=== PATIENT | female | born 1950 | race African-American/Black ===

== ENCOUNTER 2017-02-27 23:20 | Emergency (ER) | payer OTHER ==
[~2017-02-27] VITALS: Ht 177.8 cm; Wt 148.0 kg
[2017-02-28 00:36] LABS: CHLORIDE 103 mEq/L (98-107); INDEX HEMOLYSI 1 (1-3); INDEX ICTERIC 1 (1-4); INDEX LIPEMIC 1 (1-3)
[2017-02-28 00:43] LABS: BASOPHILS % 0.3 % (0.0-2.0); EOSINOPHILS % 5.5 % (0.0-5.0); HEMATOCRIT. 36.2 % (36.0-48.0); HEMOGLOBIN. 11.6 g/dL (12.0-16.0); LYMPHOCYTES % 18.5 % (20.0-50.0); MEAN CORPUSCULAR HEMOGLOBIN 27.9 pg (28.0-32.0); MEAN CORPUSCULAR HGB CONC 31.9 g/dL (31.0-37.0); MEAN CORPUSCULAR VOLUME 87.4 fL (81.0-99.0); MEAN PLATELET VOLUME 8.2 fl (7.4-10.4); MONOCYTES % 7.2 % (2.0-8.0); NEUTROPHILS % 68.5 % (40.0-76.0); PLATELET 226 x1000/uL (130-400); RED BLOOD CELL COUNT 4.14 mill/uL (4.2-5.4); RED CELL DISTRIBUTION WIDTH 15.6 % (11.6-14.6); WHITE BLOOD COUNT 5.4 x1000/uL (4.5-11.0)
[2017-02-28 00:45] LABS: ALANINE AMINOTRANSFERASE 23 IU/L (13-61); ALBUMIN 3.2 g/dL (3.4-5.0); ANION GAP 14; CALCIUM 9.5 mg/dL (8.5-10.1); CARBON DIOXIDE 27 mEq/L (21-32); LIPASE 562 IU/L (73-393); UREA NITROGEN BLOOD 13 mg/dL (7-21); eGFR > 60 mL/min (>60)
[2017-02-28 00:48] LABS: INR 1.1; PROTHROMBIN TIME 11.8 sec
[2017-02-28 02:27] VITALS: BP 175/85
[2017-02-28 02:43] LABS: CLARITY URINE TURBID (CLEAR); COLOR URINE DARK YELLOW (YELLOW); GLUCOSE URINE NEGATIVE (NEGATIVE); KETONES URINE TRACE (NEGATIVE); LEUKOCYTE ESTERASE URINE 2+ (NEGATIVE); NITRITE URINE NEGATIVE (NEGATIVE); OCCULT BLOOD URINE NEGATIVE (NEGATIVE); PROTEIN URINE TRACE (NEGATIVE); SPECIFIC GRAVITY URINE 1.025 (1.005-1.030)
[2017-02-28 03:00] LABS: RBC URINE 0-2 /hpf (0-2)
[2017-02-28 03:01] LABS: BACTERIA URINE 2+; SQUAMOUS EPITHELIAL CELL URINE 3+ /lpf (RARE/1+)
[2017-02-28] MEDS ORDERED: CEFTRIAXONE 1 G PREMIX 50 ML IV ONE (03:15)
== END 2017-02-28 04:26 | disposition home or self-care (01) ==
LOC: ER 23:23
DX: R10.84 Generalized abdominal pain (principal); N39.0 Urinary tract infection, site not specified; E11.9 Type 2 diabetes mellitus without complications; E78.00 Pure hypercholesterolemia, unspecified; D25.9 Leiomyoma of uterus, unspecified; I10 Essential (primary) hypertension; K76.0 Fatty (change of) liver, not elsewhere classified; L40.9 Psoriasis, unspecified; N20.0 Calculus of kidney; N28.1 Cyst of kidney, acquired; R06.02 Shortness of breath; R07.9 Chest pain, unspecified; R20.0 Anesthesia of skin; Z87.891 Personal history of nicotine dependence; Z88.0 Allergy status to penicillin
CPT/HCPCS: 36415; 71010; 74176; 80053; 81001; 83690; 85025; 85610; 96365; 99285; J0696; Z7610

== ENCOUNTER 2019-02-20 14:23 | Inpatient (IN) | payer BC, OTHER ==
[~2019-02-20] VITALS: Ht 177.8 cm; Wt 116.7 kg
[~2019-02-20 14:23] MED LIST: ACET-2853 PO; APIX5TAB PO; FOLI-43 PO; FURO-151 PO; GABA-290 PO; HYDR-4009 PO; HYDR2TAB4 PO; LEVO50TA PO; LOSA50TA3 PO; METF-415 PO; PANT40TA4 PO; POTA20TA82 PO; RIVA20TA PO
[2019-02-20] MEDS ORDERED: ONDANSETRON HCL 4MG/2ML INJ IV STA (14:43)
[2019-02-20 15:30] LABS: CHLORIDE 106 mEq/L (98-107)
[2019-02-20 15:31] LABS: BASOPHILS % 0.5 % (0.0-2.0); EOSINOPHILS % 3.4 % (0.0-5.0); HEMOGLOBIN. 11.9 g/dL (12.0-16.0); LYMPHOCYTES % 31.4 % (20.0-50.0); MEAN CORPUSCULAR HEMOGLOBIN 30.9 pg (28.0-32.0); MEAN CORPUSCULAR VOLUME 93.3 fL (81.0-99.0); MEAN PLATELET VOLUME 7.6 fl (7.4-10.4); NEUTROPHILS % 55.7 % (40.0-76.0); PLATELET 218 x1000/uL (130-400); RED BLOOD CELL COUNT 3.86 mill/uL (4.2-5.4); RED CELL DISTRIBUTION WIDTH 16.2 % (11.6-14.6)
[2019-02-20 15:35] LABS: ETHANOL BLOOD 104 mg/dL
[2019-02-20] MEDS ORDERED: KETOROLAC 30MG/ML VIAL IV NR (19:50)
[2019-02-20] MEDS ORDERED: VISCOUS LIDOCAINE 2% 15 ML UDC PO NR (20:00)
[2019-02-20] MEDS ORDERED: MAGNESIUM/ALUMINUM HYDROXIDE/SIMETHICONE 30ML UDC PO NR (20:00)
[2019-02-20 21:00] VITALS: BP 146/73
[2019-02-20] MEDS ORDERED: IOHEXOL-350 100 ML BOTTLE ONE (21:05)
[2019-02-20 21:30] VITALS: BP 146/79
[2019-02-20] MEDS ORDERED: CHLORDIAZEPOXIDE 25MG CAPSULE PO PRN (22:30)
[2019-02-20] MEDS ORDERED: GUAIFENESIN 200MG/10ML SUGAR FREE UDC PO PRN (22:30)
[2019-02-20] MEDS ORDERED: CLONIDINE 0.1MG TABLET PO PRN (22:30)
[2019-02-20] MEDS ORDERED: MAGNESIUM/ALUMINUM HYDROXIDE/SIMETHICONE 30ML UDC PO PRN (22:30)
[2019-02-20] MEDS ORDERED: ACETAMINOPHEN 325MG TABLET PO PRN (22:30)
[2019-02-20] MEDS ORDERED: DEXTROSE 50% WATER 50ML SYRINGE IV PRN (22:30)
[2019-02-20] MEDS ORDERED: CYANOCOBALAMIN 1000MCG/ML VIAL IM NR (22:30)
[2019-02-20] MEDS ORDERED: APIXABAN 5 MG TABLET PO SCH (22:30)
[2019-02-20] MEDS ORDERED: LORAZEPAM 2MG/ML CPJ IV PRN (22:30)
[2019-02-20] MEDS ORDERED: ONDANSETRON HCL 4MG/2ML INJ IV PRN (22:30)
[2019-02-20] MEDS ORDERED: MAGNESIUM 2 G PREMIX 50 ML IV ONE (23:00)
[2019-02-20] MEDS ORDERED: KETOROLAC 30MG/ML VIAL IV PRN (23:00)
[2019-02-21] MEDS ORDERED: POTASSIUM CHLORIDE 20MEQ/PACKET GT NR
[2019-02-21] MEDS ORDERED: MVI, ADULT NO.1 10 ML, FOLIC ACID 1 MG, THIAMINE HCL 100 MG in SODIUM CHLORIDE 0.9% 1,0... IV NR ×4
[2019-02-21] MEDS: HYDROMORPHONE HCL 2MG TABLET PO PRN ×3 (00:10→17:37)
[2019-02-21 00:21] LABS: VITAMIN B12 SERUM 573 pg/mL (211-911)
[2019-02-21 00:45] VITALS: BP 137/81
[2019-02-21 04:00] VITALS: BP 140/69
[2019-02-21] MEDS: SODIUM CHLORIDE 0.9% INJ 3ML FLUSH IVF SCH ×2 (06:41→16:32)
[2019-02-21] MEDS: BLOOD SUGAR DIAGNOSTIC STRIP TEST SCH ×4 (06:41→21:00)
[2019-02-21 07:29] LABS: CHLORIDE 107 mEq/L (98-107)
[2019-02-21 08:00] VITALS: BP 114/50
[2019-02-21] MEDS: INSULIN LISPRO 100 UNITS/ML SUBCUT SCH ×4 (08:10→21:00)
[2019-02-21] MEDS: LEVOTHYROXINE SODIUM 50MCG TABLET PO SCH (09:09)
[2019-02-21] MEDS: APIXABAN 5 MG TABLET PO SCH ×2 (09:09→17:33)
[2019-02-21] MEDS: DIPHENHYDRAMINE 50MG/ML VIAL IV PRN (09:13)
[2019-02-21 16:00] VITALS: BP 120/74
[2019-02-21] MEDS ORDERED: LEVO75TA PO (18:18)
[2019-02-21 20:00] VITALS: BP 114/62
[2019-02-21] MEDS: ATORVASTATIN CALCIUM 40MG TABLET PO SCH (20:59)
[2019-02-22] MEDS: HYDROMORPHONE HCL 2MG TABLET PO PRN ×4 (00:08→21:38)
[2019-02-22] MEDS: SODIUM CHLORIDE 0.9% INJ 3ML FLUSH IVF SCH ×4 (00:12→21:37)
[2019-02-22] MEDS: DIPHENHYDRAMINE 50MG/ML VIAL IV PRN ×4 (00:12→21:37)
[2019-02-22 04:00] VITALS: BP 120/61
[2019-02-22] MEDS: LEVOTHYROXINE SODIUM 50MCG TABLET PO SCH (06:15)
[2019-02-22] MEDS: BLOOD SUGAR DIAGNOSTIC STRIP TEST SCH ×4 (07:40→21:36)
[2019-02-22 08:00] VITALS: BP 133/73
[2019-02-22] MEDS: INSULIN LISPRO 100 UNITS/ML SUBCUT SCH ×4 (08:10→21:00)
[2019-02-22] MEDS: APIXABAN 5 MG TABLET PO SCH ×2 (08:56→21:36)
[2019-02-22 09:00] VITALS: BP 133/73
[2019-02-22 12:00] VITALS: BP 134/71
[2019-02-22 16:00] VITALS: BP 137/64
[2019-02-22 20:00] VITALS: BP 125/59
[2019-02-22] MEDS: ATORVASTATIN CALCIUM 40MG TABLET PO SCH (21:36)
[2019-02-23] VITALS: BP 98/59
[2019-02-23 04:00] VITALS: BP 129/72
[2019-02-23] MEDS: SODIUM CHLORIDE 0.9% INJ 3ML FLUSH IVF SCH ×3 (06:19→21:37)
[2019-02-23] MEDS: HYDROMORPHONE HCL 2MG TABLET PO PRN ×3 (06:25→21:36)
[2019-02-23] MEDS: INSULIN LISPRO 100 UNITS/ML SUBCUT SCH ×4 (07:26→21:00)
[2019-02-23] MEDS: BLOOD SUGAR DIAGNOSTIC STRIP TEST SCH ×4 (07:26→21:35)
[2019-02-23 08:00] VITALS: BP 123/75
[2019-02-23] MEDS: LEVOTHYROXINE SODIUM 50MCG TABLET PO SCH (09:19)
[2019-02-23] MEDS: APIXABAN 5 MG TABLET PO SCH ×2 (09:19→21:37)
[2019-02-23 12:00] VITALS: BP 122/70
[2019-02-23] MEDS: DIPHENHYDRAMINE 50MG/ML VIAL IV PRN ×2 (12:01→21:36)
[2019-02-23 16:00] VITALS: BP 133/65
[2019-02-23 20:00] VITALS: BP 125/65
[2019-02-23] MEDS: ATORVASTATIN CALCIUM 40MG TABLET PO SCH (21:36)
[2019-02-24] VITALS: BP 121/55
[2019-02-24 04:00] VITALS: BP 126/68
[2019-02-24] MEDS: LEVOTHYROXINE SODIUM 50MCG TABLET PO SCH (06:54)
[2019-02-24] MEDS: SODIUM CHLORIDE 0.9% INJ 3ML FLUSH IVF SCH ×3 (06:54→22:05)
[2019-02-24] MEDS: DIPHENHYDRAMINE 50MG/ML VIAL IV PRN ×3 (06:54→20:43)
[2019-02-24] MEDS: HYDROMORPHONE HCL 2MG TABLET PO PRN ×3 (06:55→20:43)
[2019-02-24] MEDS: BLOOD SUGAR DIAGNOSTIC STRIP TEST SCH ×4 (06:59→20:35)
[2019-02-24] MEDS: INSULIN LISPRO 100 UNITS/ML SUBCUT SCH ×4 (06:59→20:35)
[2019-02-24 08:00] VITALS: BP 131/76
[2019-02-24] MEDS: APIXABAN 5 MG TABLET PO SCH ×2 (08:43→20:42)
[2019-02-24 12:04] VITALS: BP 118/64
[2019-02-24 16:26] VITALS: BP 114/53
[2019-02-24 20:00] VITALS: BP 119/68
[2019-02-24] MEDS: ATORVASTATIN CALCIUM 40MG TABLET PO SCH (20:33)
[2019-02-25] VITALS: BP 132/62
[2019-02-25 04:00] VITALS: BP 139/73
[2019-02-25] MEDS: SODIUM CHLORIDE 0.9% INJ 3ML FLUSH IVF SCH ×3 (05:53→21:18)
[2019-02-25] MEDS: BLOOD SUGAR DIAGNOSTIC STRIP TEST SCH ×4 (05:54→21:18)
[2019-02-25] MEDS: LEVOTHYROXINE SODIUM 50MCG TABLET PO SCH (05:57)
[2019-02-25] MEDS: DIPHENHYDRAMINE 50MG/ML VIAL IV PRN ×2 (06:10→21:17)
[2019-02-25] MEDS: INSULIN LISPRO 100 UNITS/ML SUBCUT SCH ×4 (06:18→21:00)
[2019-02-25 08:00] VITALS: BP 111/63
[2019-02-25] MEDS: APIXABAN 5 MG TABLET PO SCH ×2 (10:14→21:18)
[2019-02-25] MEDS: HYDROMORPHONE HCL 2MG TABLET PO PRN ×2 (11:08→21:18)
[2019-02-25 12:00] VITALS: BP 117/73
[2019-02-25 16:00] VITALS: BP 107/83
[2019-02-25 20:00] VITALS: BP 114/54
[2019-02-25] MEDS: ATORVASTATIN CALCIUM 40MG TABLET PO SCH (21:17)
[2019-02-25] MEDS: DIPHENHYDRAMINE 25MG CAPSULE PO PRN (23:10)
[2019-02-26] VITALS: BP 107/59
[2019-02-26 04:00] VITALS: BP 162/87
[2019-02-26] MEDS: SODIUM CHLORIDE 0.9% INJ 3ML FLUSH IVF SCH ×2 (06:21→14:00)
[2019-02-26] MEDS: BLOOD SUGAR DIAGNOSTIC STRIP TEST SCH ×2 (06:21→11:34)
[2019-02-26] MEDS: LEVOTHYROXINE SODIUM 50MCG TABLET PO SCH (06:21)
[2019-02-26] MEDS: INSULIN LISPRO 100 UNITS/ML SUBCUT SCH ×2 (06:21→11:46)
[2019-02-26] MEDS: DIPHENHYDRAMINE 25MG CAPSULE PO PRN (06:35)
[2019-02-26 08:00] VITALS: BP 119/62
[2019-02-26] MEDS: APIXABAN 5 MG TABLET PO SCH (08:09)
[2019-02-26 13:42] VITALS: BP 116/68
== END 2019-02-26 15:15 | DRG 313 ==
LOC: ER 14:23 → EDBEDREQ 19:48 → EDBEDREQTM 19:54 → EDBEDREQ 19:54 → 7WST 20:09 → EDBEDREQTM 20:13 → ENRESERV 20:29 → 8WST 02-23 08:22
PROVIDERS: ADMIT Internal Medicine; ATTEND Internal Medicine
DX: R07.89 Other chest pain (principal); E46 Unspecified protein-calorie malnutrition; E66.01 Morbid (severe) obesity due to excess calories; E87.6 Hypokalemia; E11.40 Type 2 diabetes mellitus with diabetic neuropathy, unspecified; F10.229 Alcohol dependence with intoxication, unspecified; E53.8 Deficiency of other specified B group vitamins; I10 Essential (primary) hypertension; E03.9 Hypothyroidism, unspecified; K76.0 Fatty (change of) liver, not elsewhere classified; Z87.891 Personal history of nicotine dependence; Z86.711 Personal history of pulmonary embolism; Z93.3 Colostomy status; Z68.36 Body mass index [BMI] 36.0-36.9, adult; Z88.0 Allergy status to penicillin; Z79.899 Other long term (current) drug therapy
CPT/HCPCS: 36415; 71045; 71275; 80051; 80320; 82607; 82962; 83036; 83735; 83880; 84443; 84484; 93005; 93306; 93970; 97110; 97162; 97166; 97530; 99285; A6261; J1200; J1885; J2405; J3411; J3420; J3490; J7030; J7050; Q0163; Q9967; G0480

== ENCOUNTER 2019-08-26 16:36 | Inpatient (IN) | payer BC ==
[~2019-08-26] VITALS: Ht 175.3 cm; Wt 110.2 kg
[~2019-08-26 16:36] MED LIST changes: -ACET-2853 PO; -FOLI-43 PO; -FURO-151 PO; -GABA-290 PO; -HYDR-4009 PO; -LEVO50TA PO; +LEVO75TA PO; -LOSA50TA3 PO; -METF-415 PO; -PANT40TA4 PO; -POTA20TA82 PO; -RIVA20TA PO
[2019-08-26] MEDS ORDERED: SODIUM CHLORIDE 0.9% 1,000 ML IV ONE (17:15)
[2019-08-26 17:59] LABS: BASOPHILS % 0.6 % (0.0-2.0); EOSINOPHILS % 1.2 % (0.0-5.0); HEMATOCRIT. 44.6 % (36.0-48.0); HEMOGLOBIN. 14.5 g/dL (12.0-16.0); LYMPHOCYTES % 17.3 % (20.0-50.0); MEAN CORPUSCULAR HEMOGLOBIN 31.2 pg (28.0-32.0); MEAN CORPUSCULAR VOLUME 96.1 fL (81.0-99.0); MEAN PLATELET VOLUME 9.4 fl (7.4-10.4); MONOCYTES % 5.6 % (2.0-8.0); NEUTROPHILS % 75.3 % (40.0-76.0); PLATELET 236 x1000/uL (130-400); RED BLOOD CELL COUNT 4.64 mill/uL (4.2-5.4); RED CELL DISTRIBUTION WIDTH 17.4 % (11.6-14.6)
[2019-08-26 18:04] LABS: PROTHROMBIN TIME 10.5 sec (9.6-11.0)
[2019-08-26 18:06] LABS: CHLORIDE 109 mEq/L (98-107)
[2019-08-26] MEDS ORDERED: SODIUM CHLORIDE 0.9% 1000ML BAG (SEPSIS BOLUS) IV ONE (18:30)
[2019-08-26] MEDS ORDERED: VANCOMYCIN 1 G PREMIX 200 ML IV ONE (18:30)
[2019-08-26] MEDS ORDERED: PIPERACILLIN/TAZ 3.375G PREMIX 50 ML IV ONE (18:30)
[2019-08-26 20:38] LABS: CLARITY URINE TURBID (CLEAR); COLOR URINE DARK YELLOW (YELLOW); KETONES URINE TRACE (NEGATIVE); LEUKOCYTE ESTERASE URINE 3+ (NEGATIVE); NITRITE URINE NEGATIVE (NEGATIVE); OCCULT BLOOD URINE 3+ (NEGATIVE); PH URINE >=9.0 (4.5-8.0); PROTEIN URINE 4+ (NEGATIVE); SPECIFIC GRAVITY URINE 1.023 (1.005-1.030)
[2019-08-26] MEDS ORDERED: IPRATROPIUM/ALBUTEROL 0.5-3(2.5)MG/3ML NEB NEB PRN (22:45)
[2019-08-26] MEDS ORDERED: CLONIDINE 0.1MG TABLET PO PRN (22:45)
[2019-08-26] MEDS ORDERED: DEXTROSE 50% WATER 50ML SYRINGE IV PRN (22:45)
[2019-08-26] MEDS ORDERED: MAGNESIUM/ALUMINUM HYDROXIDE/SIMETHICONE 30ML UDC PO PRN (22:45)
[2019-08-26] MEDS ORDERED: DIPHENHYDRAMINE 50MG/ML VIAL IV PRN (22:45)
[2019-08-26] MEDS ORDERED: ONDANSETRON HCL 4MG/2ML INJ IV PRN (22:45)
[2019-08-27] VITALS: BP 146/85
[2019-08-27 04:25] VITALS: BP 131/79
[2019-08-27] MEDS ORDERED: MVI, ADULT NO.1 10 ML, FOLIC ACID 1 MG, THIAMINE HCL 100 MG in SODIUM CHLORIDE 0.9% 1,0... IV SCH ×4 (05:00)
[2019-08-27] MEDS ORDERED: LEVOFLOXACIN 500MG PREMIX 100 ML IV SCH (06:00)
[2019-08-27] MEDS: SODIUM CHLORIDE 0.9% INJ 3ML FLUSH IVF SCH ×3 (06:25→21:34)
[2019-08-27] MEDS: BLOOD SUGAR DIAGNOSTIC STRIP TEST SCH ×4 (07:40→21:34)
[2019-08-27 08:00] VITALS: BP 130/78
[2019-08-27] MEDS: INSULIN LISPRO 100 UNITS/ML SUBCUT SCH ×4 (08:58→21:00)
[2019-08-27] MEDS: ENOXAPARIN 30MG/0.3ML SYR SUBCUT SCH ×2 (08:59→21:36)
[2019-08-27 09:24] LABS: BASOPHILS % 0.2 % (0.0-2.0); EOSINOPHILS % 1.6 % (0.0-5.0); HEMOGLOBIN. 12.2 g/dL (12.0-16.0); LYMPHOCYTES % 13.9 % (20.0-50.0); MEAN CORPUSCULAR HEMOGLOBIN 30.6 pg (28.0-32.0); MEAN CORPUSCULAR VOLUME 94.8 fL (81.0-99.0); MEAN PLATELET VOLUME 8.9 fl (7.4-10.4); MONOCYTES % 5.3 % (2.0-8.0); PLATELET 170 x1000/uL (130-400); RED BLOOD CELL COUNT 4.01 mill/uL (4.2-5.4); RED CELL DISTRIBUTION WIDTH 17.3 % (11.6-14.6)
[2019-08-27 09:33] LABS: CHLORIDE 115 mEq/L (98-107)
[2019-08-27] MEDS ORDERED: SODIUM PHOS,M-BASIC-D-BASIC 15 MM in DEXT 5% WATER 245 ML IV ONE (10:30)
[2019-08-27] MEDS: LEVOTHYROXINE SODIUM 50MCG TABLET PO SCH (11:34)
[2019-08-27] MEDS: POTASSIUM CHLORIDE 20MEQ TABLET SR PO SCH ×3 (11:34→16:11)
[2019-08-27 12:00] VITALS: BP 155/90
[2019-08-27] MEDS ORDERED: MAGNESIUM 2 G PREMIX 50 ML IV SCH (12:00)
[2019-08-27] MEDS ORDERED: POTASSIUM PHOS,M-BASIC-D-BASIC 15 MMOL in DEXTROSE 5% WATER 250 ML IV SCH (12:00)
[2019-08-27 13:37] LABS: VITAMIN B12 SERUM 1600 pg/mL (211-911)
[2019-08-27 16:00] VITALS: BP 129/81
[2019-08-27] MEDS: PANTOT AC/MIN OIL/PET HY-PHL OINT (AQUAPHOR) TOP SCH (16:50)
[2019-08-27] MEDS: NYSTATIN POWDER 15GM TOP SCH ×2 (16:51→21:34)
[2019-08-28] VITALS: BP 154/87
[2019-08-28 04:00] VITALS: BP 152/91
[2019-08-28] MEDS: SODIUM CHLORIDE 0.9% INJ 3ML FLUSH IVF SCH ×3 (05:06→20:53)
[2019-08-28] MEDS: NYSTATIN POWDER 15GM TOP SCH ×3 (05:19→20:54)
[2019-08-28] MEDS ORDERED: LEVOFLOXACIN 500MG PREMIX 100 ML IV SCH (06:00)
[2019-08-28 07:31] LABS: BASOPHILS % 0.4 % (0.0-2.0); EOSINOPHILS % 4.4 % (0.0-5.0); HEMATOCRIT. 36.1 % (36.0-48.0); HEMOGLOBIN. 11.7 g/dL (12.0-16.0); MEAN CORPUSCULAR HEMOGLOBIN 31.1 pg (28.0-32.0); MONOCYTES % 7.7 % (2.0-8.0); NEUTROPHILS % 67.5 % (40.0-76.0); PLATELET 169 x1000/uL (130-400); RED BLOOD CELL COUNT 3.76 mill/uL (4.2-5.4); RED CELL DISTRIBUTION WIDTH 17.5 % (11.6-14.6)
[2019-08-28 07:58] LABS: CHLORIDE 120 mEq/L (98-107)
[2019-08-28 08:00] VITALS: BP 126/75
[2019-08-28 08:06] LABS: PHOSPHORUS 3.4 mg/dL (2.5-4.9)
[2019-08-28] MEDS: INSULIN LISPRO 100 UNITS/ML SUBCUT SCH ×4 (08:10→21:00)
[2019-08-28] MEDS: BLOOD SUGAR DIAGNOSTIC STRIP TEST SCH ×4 (08:14→21:00)
[2019-08-28] MEDS: LEVOTHYROXINE SODIUM 50MCG TABLET PO SCH (08:21)
[2019-08-28] MEDS: PANTOT AC/MIN OIL/PET HY-PHL OINT (AQUAPHOR) TOP SCH (09:00)
[2019-08-28] MEDS: ENOXAPARIN 30MG/0.3ML SYR SUBCUT SCH ×2 (10:01→20:53)
[2019-08-28] MEDS: ACETAMINOPHEN 325MG TABLET PO PRN ×2 (11:35→20:55)
[2019-08-28 12:00] VITALS: BP 118/79
[2019-08-28] MEDS ORDERED: CEFTRIAXONE 1 G PREMIX 50 ML IV SCH (14:45)
[2019-08-28 16:00] VITALS: BP 119/77
[2019-08-28 20:00] VITALS: BP 149/84
[2019-08-28] MEDS: SULFAMETHOXAZOLE/TRIMETHOPRIM 800/160MG TABLET PO SCH (20:53)
[2019-08-29 00:44] VITALS: BP 115/76
[2019-08-29 04:00] VITALS: BP 133/75
[2019-08-29] MEDS: NYSTATIN POWDER 15GM TOP SCH ×3 (06:34→21:41)
[2019-08-29] MEDS: SODIUM CHLORIDE 0.9% INJ 3ML FLUSH IVF SCH ×3 (06:34→21:40)
[2019-08-29 08:00] VITALS: BP 140/68
[2019-08-29] MEDS: INSULIN LISPRO 100 UNITS/ML SUBCUT SCH ×4 (08:10→20:24)
[2019-08-29] MEDS: BLOOD SUGAR DIAGNOSTIC STRIP TEST SCH ×4 (08:25→20:17)
[2019-08-29] MEDS: LEVOTHYROXINE SODIUM 50MCG TABLET PO SCH (08:30)
[2019-08-29] MEDS: SULFAMETHOXAZOLE/TRIMETHOPRIM 800/160MG TABLET PO SCH ×2 (08:30→20:16)
[2019-08-29] MEDS: ENOXAPARIN 30MG/0.3ML SYR SUBCUT SCH ×2 (08:30→20:17)
[2019-08-29] MEDS: NYSTATIN/TRIAMCIN CREAM 15GM TOP SCH ×4 (11:29→21:41)
[2019-08-29] MEDS: PANTOT AC/MIN OIL/PET HY-PHL OINT (AQUAPHOR) TOP SCH (11:29)
[2019-08-29 12:00] VITALS: BP 138/74
[2019-08-29 16:00] VITALS: BP 105/59
[2019-08-29] MEDS: DIPHENHYDRAMINE 50MG CAPSULE PO PRN (16:56)
[2019-08-29 20:31] VITALS: BP 126/72
[2019-08-30] VITALS: BP 118/62
[2019-08-30 04:00] VITALS: BP 122/70
[2019-08-30] MEDS: SODIUM CHLORIDE 0.9% INJ 3ML FLUSH IVF SCH ×3 (05:15→21:27)
[2019-08-30] MEDS: NYSTATIN/TRIAMCIN CREAM 15GM TOP SCH ×3 (05:40→21:27)
[2019-08-30] MEDS: NYSTATIN POWDER 15GM TOP SCH ×3 (05:40→21:27)
[2019-08-30 08:00] VITALS: BP 132/65
[2019-08-30] MEDS: INSULIN LISPRO 100 UNITS/ML SUBCUT SCH (08:10)
[2019-08-30] MEDS: BLOOD SUGAR DIAGNOSTIC STRIP TEST SCH (08:31)
[2019-08-30] MEDS: ENOXAPARIN 30MG/0.3ML SYR SUBCUT SCH ×2 (09:13→21:27)
[2019-08-30] MEDS: SULFAMETHOXAZOLE/TRIMETHOPRIM 800/160MG TABLET PO SCH ×2 (09:13→21:46)
[2019-08-30] MEDS: LEVOTHYROXINE SODIUM 50MCG TABLET PO SCH (09:13)
[2019-08-30] MEDS: PANTOT AC/MIN OIL/PET HY-PHL OINT (AQUAPHOR) TOP SCH (09:14)
[2019-08-30 12:00] VITALS: BP 128/79
[2019-08-30] MEDS: ACETAMINOPHEN 325MG TABLET PO PRN ×2 (13:08→21:47)
[2019-08-30 16:00] VITALS: BP 118/78
[2019-08-30 20:29] VITALS: BP 106/82
[2019-08-30] MEDS: DIPHENHYDRAMINE 50MG CAPSULE PO PRN (23:32)
[2019-08-31] VITALS: BP 101/61
[2019-08-31 04:00] VITALS: BP 107/70
[2019-08-31] MEDS: SODIUM CHLORIDE 0.9% INJ 3ML FLUSH IVF SCH ×3 (06:21→21:05)
[2019-08-31] MEDS: DIPHENHYDRAMINE 50MG CAPSULE PO PRN ×2 (06:24→21:04)
[2019-08-31] MEDS: NYSTATIN POWDER 15GM TOP SCH ×3 (06:25→21:05)
[2019-08-31] MEDS: NYSTATIN/TRIAMCIN CREAM 15GM TOP SCH ×3 (06:26→21:05)
[2019-08-31 08:00] VITALS: BP 125/69
[2019-08-31] MEDS: ENOXAPARIN 30MG/0.3ML SYR SUBCUT SCH ×2 (09:44→21:04)
[2019-08-31] MEDS: LEVOTHYROXINE SODIUM 50MCG TABLET PO SCH (09:45)
[2019-08-31] MEDS: PANTOT AC/MIN OIL/PET HY-PHL OINT (AQUAPHOR) TOP SCH (09:45)
[2019-08-31] MEDS: SULFAMETHOXAZOLE/TRIMETHOPRIM 800/160MG TABLET PO SCH ×2 (09:45→21:04)
[2019-08-31 11:48] VITALS: BP 122/74
[2019-08-31 16:00] VITALS: BP 122/76
[2019-08-31 20:47] VITALS: BP 111/69
[2019-08-31] MEDS: ACETAMINOPHEN 325MG TABLET PO PRN (21:05)
[2019-09-01 00:09] VITALS: BP 129/83
[2019-09-01 04:00] VITALS: BP 115/68
[2019-09-01] MEDS: SODIUM CHLORIDE 0.9% INJ 3ML FLUSH IVF SCH ×2 (05:07→14:03)
[2019-09-01] MEDS: NYSTATIN POWDER 15GM TOP SCH ×2 (05:13→14:05)
[2019-09-01] MEDS: NYSTATIN/TRIAMCIN CREAM 15GM TOP SCH ×2 (05:13→14:00)
[2019-09-01 08:30] VITALS: BP 114/69
[2019-09-01] MEDS: LEVOTHYROXINE SODIUM 50MCG TABLET PO SCH (08:59)
[2019-09-01] MEDS: ENOXAPARIN 30MG/0.3ML SYR SUBCUT SCH (08:59)
[2019-09-01] MEDS: SULFAMETHOXAZOLE/TRIMETHOPRIM 800/160MG TABLET PO SCH (08:59)
[2019-09-01] MEDS: PANTOT AC/MIN OIL/PET HY-PHL OINT (AQUAPHOR) TOP SCH (09:02)
[2019-09-01 12:00] VITALS: BP 114/74
[2019-09-01 14:12] VITALS: BP 114/74
[2019-09-01 16:00] VITALS: BP 123/73
== END 2019-09-01 19:25 | DRG 871 ==
LOC: ER 16:36 → 7WST 18:10 → EDBEDREQ 18:26 → EDBEDREQTM 18:26 → ENRESERV 22:42
PROVIDERS: ADMIT Internal Medicine; ATTEND Internal Medicine
DX: A41.9 Sepsis, unspecified organism (principal); E43 Unspecified severe protein-calorie malnutrition; G93.41 Metabolic encephalopathy; N17.9 Acute kidney failure, unspecified; N39.0 Urinary tract infection, site not specified; B36.9 Superficial mycosis, unspecified; E03.9 Hypothyroidism, unspecified; E11.40 Type 2 diabetes mellitus with diabetic neuropathy, unspecified; E66.01 Morbid (severe) obesity due to excess calories; L89.156 Pressure-induced deep tissue damage of sacral region; L00-L99 Diseases of the skin and subcutaneous tissue; L85.3 Xerosis cutis; E86.0 Dehydration; E87.6 Hypokalemia; I10 Essential (primary) hypertension; Z74.01 Bed confinement status; Z86.711 Personal history of pulmonary embolism; Z93.3 Colostomy status; Z93.1 Gastrostomy status; Z68.35 Body mass index [BMI] 35.0-35.9, adult; Z79.01 Long term (current) use of anticoagulants; Z88.0 Allergy status to penicillin; Z87.891 Personal history of nicotine dependence
CPT/HCPCS: 36415; 71045; 80048; 81003; 82607; 82962; 83036; 83605; 83735; 84100; 84134; 84443; 84484; 86850; 86900; 87077; 87186; 93005; 93970; 96365; 96366; 96367; 97110; 97162; 97166; 97535; 99291; J1200; J1650; J1815; J1956; J2543; J3370; J3411; J3475; J3490; J7030; J7060; Q0163